=== PATIENT | female | born 1995 | race Asian ===

== ENCOUNTER 2016-10-29 20:11 | Emergency (ER) | payer OTHER ==
[~2016-10-29] VITALS: Ht 162.6 cm; Wt 59.0 kg
[~2016-10-29 20:11] MED LIST: NKM
[2016-10-29 20:15] VITALS: BP 110/68
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
[2016-10-29 21:18] LABS: APPEARANCE,URINE CLEAR; KETONES,URINE NEGATIVE (NEGATIVE); LEUKOCYTE ESTERASE ,URINE NEGATIVE (NEGATIVE); NITRITE,URINE NEGATIVE (NEGATIVE); PH,URINE 6.5 (4.5-8.0); PROTEIN,URINE NEGATIVE (NEGATIVE); UROBILINOGEN,URINE NORMAL MG/DL (0.0-1.0)
[2016-10-29] MEDS ORDERED: IBUPROFEN600 MG ORAL (22:00)
[2016-10-29 22:40] VITALS: BP 108/70
[2016-10-29 22:45] VITALS: BP 108/70
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
--- NOTE | 2016-10-30 10:25 | Diagnostic Imaging Report ---
Indication: SOB Technique: One view of the chest Comparison: none Findings: Lungs and pleural spaces are clear. Heart size is normal. Impression: No acute process
== END 2016-10-29 22:45 | disposition home or self-care (01) ==
LOC: EDBD 20:11 → EMR 20:50
DX: S20.219A Contusion of unspecified front wall of thorax, initial encounter (principal); S50.812A Abrasion of left forearm, initial encounter; S50.811A Abrasion of right forearm, initial encounter; V43.52XA Car driver injured in collision with other type car in traffic accident, initial encounter; Y93.9 Activity, unspecified; Y92.410 Unspecified street and highway as the place of occurrence of the external cause
CPT/HCPCS: 71010; 74176; 81003; 81025; 99284